=== PATIENT | male | born 1955 | race Caucasian/White ===

== ENCOUNTER 2024-08-12 10:39 | Emergency (ER) | payer MEDICARE ==
[~2024-08-12] VITALS: Ht 167.6 cm; Wt 102.2 kg
[~2024-08-12 10:39] MED LIST: ACET-683 PO; ADVA115A INH; ALBU8.5H PO; ALLO100T PO; AMLO1TAB24 PO; ATOR40TA75 PO; CALC1CAP PO; CALC667T2 PO; CARV3.12 PO; CARV6.25 PO; ECOT81TA5 PO; FINA5TAB2 PO; FLUT1BLS4; GABA-1171 PO; GABA-1172 PO; KETO120S5 TOP; KETO2CR TOP; LEVE250T5 PO; MAGN400C PO; NEUR100C PO; NORV5TAB PO; OXYC1TAB23 PO; PERCOCET PO; SEVE800T3 PO; TAMS-18 PO; TAMS1CAP17 PO; TIZA10TA PO; TIZA2CAP PO; TIZA2TA PO; VITA500038 PO
[2024-08-12 12:01] LABS: PLATELET COUNT, AUTOMATED 194 10^3/uL (150-450)
[2024-08-12 12:35] LABS: ALT/SGPT 12 U/L (7.0-40); AST/SGOT 12 U/L (<34); CALCIUM LEVEL 9.1 MG/DL (8.3-10.6); CARBON DIOXIDE LEVEL 21 MMOL/L (20-31); CHLORIDE LEVEL 101 MMOL/L (98-107); CREATININE FOR GFR 9.75 MG/DL (0.70-1.30); GLOMERULAR FILTRATION RATE 5.3 (>42); POTASSIUM SERUM 4.7 MMOL/L (3.5-5.1); SODIUM LEVEL 141 MMOL/L (136-145)
[2024-08-12 13:00] VITALS: BP 149/68; O2SAT 96
[2024-08-12 13:15] VITALS: TEMP 96.5
[2024-08-12 13:21] LABS: CK-MB VALUE MASS 3.3 NG/ML (<3.6)
[2024-08-12 13:22] LABS: CPK CREATINE PHOSPHOKINASE 136 U/L (46-171); MB/CK RELATIVE INDEX 2.42 (< OR =4)
[2024-08-12 13:37] LABS: BASO # 0.1 10^3/uL (0.0-0.2); BASO % 1.2 % (0.0-1.0); EOS # 0.5 10^3/uL (0.0-0.5); EOS % 4.5 % (0.0-3.0); LYMPH # 1.3 10^3/uL (1.5-5.0); LYMPH % 11.2 % (24.0-44.0); MONO # 0.9 10^3/uL (0.0-0.8); MONO % 7.8 % (2.0-8.0); NEUTROPHILS # 9.0 10^3/uL (1.5-8.5); NEUTROPHILS % 75.0 % (36.0-66.0)
== END 2024-08-12 13:20 | disposition home or self-care (01) ==
LOC: M ED 10:39
DX: N17.9 Acute kidney failure, unspecified (principal); J44.9 Chronic obstructive pulmonary disease, unspecified; G40.909 Epilepsy, unspecified, not intractable, without status epilepticus; Z79.52 Long term (current) use of systemic steroids; Z79.82 Long term (current) use of aspirin; Z79.02 Long term (current) use of antithrombotics/antiplatelets; Z79.899 Other long term (current) drug therapy

== ENCOUNTER 2024-08-16 15:21 | Day surgery (SDC) | payer MEDICARE ==
[~2024-08-16] VITALS: Ht 167.6 cm; Wt 97.4 kg
[2024-08-16] MEDS ORDERED: DESFLURANE 240 ML INHALANT As Ordered ONE (16:20)
[2024-08-16] MEDS ORDERED: SUGAMMADEX SODIUM 500 MG/5 ML VIAL As Ordered ONE (16:20)
[2024-08-16] MEDS ORDERED: MIDAZOLAM INJ 2 MG/2 ML VIAL As Ordered ONE (16:20)
[2024-08-16] MEDS ORDERED: ONDANSETRON 4MG 2ML VIAL As Ordered ONE (16:20)
[2024-08-16] MEDS ORDERED: dexAMETHasone 4 MG/ML 1 ML VIAL As Ordered ONE (16:20)
[2024-08-16] MEDS ORDERED: ROCURONIUM BROMIDE 50MG/5ML VIAL As Ordered ONE (16:20)
[2024-08-16] MEDS ORDERED: LIDOCAINE 2% 100 MG/5 ML SDV (FOR ANES.) As Ordered ONE (16:22)
[2024-08-16] MEDS: ceFAZolin SOD 2 GM IV ONCE IV ONE (17:15)
[2024-08-16] MEDS ORDERED: ACETAMINOPHEN 1000MG/100ML IV BAG As Ordered ONE (17:37)
[2024-08-16] MEDS: HEPARIN SOD 5000 UNITS/ML 1 ML VIAL/SYRINGE As Ordered ONE (17:42)
[2024-08-16] MEDS ORDERED: HYDROMORPHONE HCL 0.5 MG/0.5 ML SYRINGE IV PRN (17:45)
[2024-08-16 18:40] VITALS: BP 133/77; TEMP 98.6; O2SAT 94
[2024-08-17] MEDS ORDERED: UNRESOLVED CLARIFICATION ENTRY XX SCH (00:01)
== END 2024-08-16 19:05 | disposition home or self-care (01) ==
LOC: M SDC 15:21
PROVIDERS: ATTEND Surgery
DX: N18.6 End stage renal disease (principal); I12.0 Hypertensive chronic kidney disease with stage 5 chronic kidney disease or end stage renal disease; I25.10 Atherosclerotic heart disease of native coronary artery without angina pectoris; Z98.61 Coronary angioplasty status; M10.9 Gout, unspecified; I25.2 Old myocardial infarction; E78.5 Hyperlipidemia, unspecified; J44.9 Chronic obstructive pulmonary disease, unspecified; D64.9 Anemia, unspecified; G40.909 Epilepsy, unspecified, not intractable, without status epilepticus; G62.9 Polyneuropathy, unspecified; N40.0 Benign prostatic hyperplasia without lower urinary tract symptoms; Z79.51 Long term (current) use of inhaled steroids; Z79.899 Other long term (current) drug therapy; Z79.82 Long term (current) use of aspirin
CPT/HCPCS: 36415; 49324; 84132; J0131; J0665; J0690; J1100; J2250; J2405; J3010

== ENCOUNTER 2024-09-13 13:17 | Inpatient (IN) | payer OTHER, MEDICARE ==
[~2024-09-13] VITALS: Ht 167.6 cm; Wt 93.4 kg
[2024-09-13] MEDS: ACETAMINOPHEN 500 MG TAB PO ONE (15:29)
[2024-09-13] MEDS: METHOCARBAMOL 1,000 MG/10 ML VIAL IV ONE (18:44)
[2024-09-13] MEDS: MORPHINE 2 MG/ML 1 ML VIAL IV ONE (18:44)
[2024-09-13 18:51] LABS: BASO # 0.1 10^3/uL (0.0-0.2); BASO % 0.9 % (0.0-1.0); EOS # 0.8 10^3/uL (0.0-0.5); EOS % 7.6 % (0.0-3.0); LYMPH # 1.7 10^3/uL (1.5-5.0); LYMPH % 17.4 % (24.0-44.0); MONO # 0.9 10^3/uL (0.0-0.8); MONO % 9.0 % (2.0-8.0); NEUTROPHILS # 6.5 10^3/uL (1.5-8.5); NEUTROPHILS % 64.8 % (36.0-66.0); PLATELET COUNT, AUTOMATED 206 10^3/uL (150-450)
[2024-09-13 19:29] LABS: CALCIUM LEVEL 8.8 MG/DL (8.3-10.6); CARBON DIOXIDE LEVEL 21.0 MMOL/L (20-31); CHLORIDE LEVEL 106.0 MMOL/L (98-107); CREATININE FOR GFR 9.7 MG/DL (0.70-1.30); GLOMERULAR FILTRATION RATE 5.3 (>42); POTASSIUM SERUM 5.5 MMOL/L (3.5-5.1); SODIUM LEVEL 143.0 MMOL/L (136-145)
[2024-09-13] MEDS: PATIROMER SORBITEX CALCIUM 8.4GM POWDER PACKET PO ONE (20:30)
[2024-09-13] MEDS: NS (Normal Saline) 0.9% 1,000 ML IV ONE (20:30)
[2024-09-13] MEDS: HYDROMORPHONE HCL 0.5 MG/0.5 ML SYRINGE IV PRN (20:32)
[2024-09-13] MEDS: GABAPENTIN 300 MG CAP PO ONE (23:37)
[2024-09-14] MEDS ORDERED: MOM 30 ML SUSPENSION UDC PO PRN (01:05)
[2024-09-14 01:40] VITALS: BP 112/63; TEMP 97.5; O2SAT 98
[2024-09-14] MEDS ORDERED: GABA-1171 PO (03:14)
[2024-09-14] MEDS ORDERED: HOME MED LIST COMPLETE! XX SCH (03:15)
[2024-09-14 05:05] VITALS: BP 144/79; TEMP 97.5; O2SAT 97
[2024-09-14] MEDS ORDERED: SODIUM CHLORIDE 0.9% 1000 ML IV PRN (06:25)
[2024-09-14] MEDS ORDERED: HEPARIN 1,000 UNITS/ML 10 ML VIAL (FOR RADIOLOGY & DIALYSIS ONLY) IV PRN (06:25)
[2024-09-14] MEDS ORDERED: ALBUTEROL 90 MCG/ACT 8 GM HFA INHALER INH PRN (06:50)
[2024-09-14] MEDS ORDERED: PERCOCET 5MG/325MG TAB PO PRN (06:50)
[2024-09-14] MEDS ORDERED: PILL CUTTER 1 EACH XX PRN (07:05)
[2024-09-14 07:31] LABS: PLATELET COUNT, AUTOMATED 206 10^3/uL (150-450)
[2024-09-14] MEDS: FINASTERIDE 5 MG TAB PO SCH (07:50)
[2024-09-14] MEDS: SEVELAMER *CARBONate* 800 MG TAB PO SCH (07:50)
[2024-09-14] MEDS: ASPIRIN 81 MG ENTERIC TABLET PO SCH (07:50)
[2024-09-14] MEDS: GABAPENTIN 100 MG CAP PO SCH ×2 (07:51→20:17)
[2024-09-14] MEDS: ACETAMINOPHEN 325 MG TAB PO PRN (07:51)
[2024-09-14] MEDS: ATORVASTATIN 20 MG TAB PO SCH (07:52)
[2024-09-14] MEDS: MAGNESIUM OXIDE 400 MG TAB PO SCH (07:52)
[2024-09-14] MEDS: TAMSULOSIN 0.4 MG CAP PO SCH (07:52)
[2024-09-14 08:02] LABS: ALT/SGPT 13.0 U/L (7.0-40); AST/SGOT 13.0 U/L (<34); CALCIUM LEVEL 9.1 MG/DL (8.3-10.6); CARBON DIOXIDE LEVEL 19.0 MMOL/L (20-31); CHLORIDE LEVEL 106.0 MMOL/L (98-107); CREATININE FOR GFR 9.92 MG/DL (0.70-1.30); GLOMERULAR FILTRATION RATE 5.2 (>42); POTASSIUM SERUM 5.8 MMOL/L (3.5-5.1); SODIUM LEVEL 142.0 MMOL/L (136-145)
[2024-09-14] MEDS: DOCUSATE SODIUM 100 MG CAPSULE PO SCH (09:00)
[2024-09-14] MEDS: HEPARIN SOD 5000 UNITS/ML 1 ML VIAL/SYRINGE SC SCH (09:00)
[2024-09-14] MEDS: PERCOCET 5MG/325MG TAB PO PRN (09:22)
[2024-09-14] MEDS: HEPARIN 1,000 UNITS/ML 10 ML VIAL (FOR RADIOLOGY & DIALYSIS ONLY) XX SCH (10:42)
[2024-09-14 13:00] VITALS: BP 139/92; TEMP 97
[2024-09-14] MEDS: LIDOCAINE 5% PATCH TD SCH (15:53)
[2024-09-14 18:20] VITALS: BP 151/92
[2024-09-14] MEDS: ONDANSETRON 4MG 2ML VIAL IV PRN (18:37)
[2024-09-14 19:25] VITALS: BP 146/88; TEMP 98.2; O2SAT 96
[2024-09-15 05:01] VITALS: BP 135/71; TEMP 97.7; O2SAT 97
[2024-09-15 06:50] LABS: BASO # 0.1 10^3/uL (0.0-0.2); BASO % 1.1 % (0.0-1.0); EOS # 0.3 10^3/uL (0.0-0.5); EOS % 3.8 % (0.0-3.0); LYMPH # 1.6 10^3/uL (1.5-5.0); LYMPH % 21.2 % (24.0-44.0); MONO # 1.1 10^3/uL (0.0-0.8); MONO % 15.3 % (2.0-8.0); NEUTROPHILS # 4.3 10^3/uL (1.5-8.5); NEUTROPHILS % 58.3 % (36.0-66.0); PLATELET COUNT, AUTOMATED 165 10^3/uL (150-450)
[2024-09-15 07:25] LABS: CALCIUM LEVEL 9.1 MG/DL (8.3-10.6); CARBON DIOXIDE LEVEL 27.0 MMOL/L (20-31); CHLORIDE LEVEL 105.0 MMOL/L (98-107); CREATININE FOR GFR 7.1 MG/DL (0.70-1.30); GLOMERULAR FILTRATION RATE 7.7 (>42); MAGNESIUM LEVEL 2.4 MG/DL (1.8-2.4); POTASSIUM SERUM 4.1 MMOL/L (3.5-5.1); SODIUM LEVEL 144.0 MMOL/L (136-145)
[2024-09-15 12:00] VITALS: BP 128/79; TEMP 97.7
[2024-09-15] MEDS: PERCOCET 5MG/325MG TAB PO PRN (18:45)
[2024-09-15 19:55] VITALS: BP 128/76; TEMP 98.1; O2SAT 96
[2024-09-16 04:32] VITALS: BP 133/73; TEMP 97.7; O2SAT 95
[2024-09-16] MEDS: PERCOCET 5MG/325MG TAB PO PRN (04:45)
[2024-09-16] MEDS ORDERED: HEPARIN 1,000 UNITS/ML 10 ML VIAL (FOR RADIOLOGY & DIALYSIS ONLY) IV PRN (06:00)
[2024-09-16] MEDS ORDERED: SODIUM CHLORIDE 0.9% 1000 ML IV PRN (06:00)
[2024-09-16 06:39] LABS: BASO # 0.1 10^3/uL (0.0-0.2); BASO % 1.1 % (0.0-1.0); EOS # 0.5 10^3/uL (0.0-0.5); EOS % 5.5 % (0.0-3.0); LYMPH # 1.7 10^3/uL (1.5-5.0); LYMPH % 19.1 % (24.0-44.0); MONO # 1.2 10^3/uL (0.0-0.8); MONO % 13.2 % (2.0-8.0); NEUTROPHILS # 5.3 10^3/uL (1.5-8.5); NEUTROPHILS % 60.6 % (36.0-66.0); PLATELET COUNT, AUTOMATED 177 10^3/uL (150-450)
[2024-09-16 08:03] LABS: CALCIUM LEVEL 9.3 MG/DL (8.3-10.6); CARBON DIOXIDE LEVEL 25.0 MMOL/L (20-31); CHLORIDE LEVEL 106.0 MMOL/L (98-107); CREATININE FOR GFR 8.53 MG/DL (0.70-1.30); GLOMERULAR FILTRATION RATE 6.2 (>42); POTASSIUM SERUM 4.7 MMOL/L (3.5-5.1); SODIUM LEVEL 145.0 MMOL/L (136-145)
[2024-09-16] MEDS: HEPARIN 1,000 UNITS/ML 10 ML VIAL (FOR RADIOLOGY & DIALYSIS ONLY) XX SCH (09:13)
[2024-09-16 13:26] VITALS: BP 131/74; TEMP 97.9; O2SAT 99
[2024-09-16 19:40] VITALS: BP 126/93; TEMP 97.9; O2SAT 97
[2024-09-17 05:35] VITALS: TEMP 97.5
[2024-09-17 08:50] LABS: CALCIUM LEVEL 9.6 MG/DL (8.3-10.6); CARBON DIOXIDE LEVEL 25.0 MMOL/L (20-31); CHLORIDE LEVEL 104.0 MMOL/L (98-107); CREATININE FOR GFR 6.93 MG/DL (0.70-1.30); GLOMERULAR FILTRATION RATE 7.9 (>42); POTASSIUM SERUM 4.5 MMOL/L (3.5-5.1); SODIUM LEVEL 141.0 MMOL/L (136-145)
[2024-09-17 09:54] VITALS: BP 127/77
[2024-09-17 14:00] VITALS: BP 136/70; TEMP 97.5; O2SAT 98
[2024-09-17] MEDS ORDERED: LIDO1PAD TOP (16:04)
[2024-09-17] MEDS ORDERED: OXYC1TAB23 PO (16:04)
== END 2024-09-17 16:35 | disposition home or self-care (01) | DRG 347 ==
LOC: M ED 13:17 → EDBD 13:17 → M ED INP 13:18 → M MS5PR 09-14 01:40 → OBSVTOIN 09-14 15:41
PROVIDERS: ADMIT Student in an Organized Health Care Education/Training Program; ATTEND Internal Medicine
PROC: 5A1D70Z Performance of Urinary Filtration, Intermittent, Less than 6 Hours Per Day (ICD-10-PCS; principal; 2024-09-14)
DX: M48.061 Spinal stenosis, lumbar region without neurogenic claudication (principal); I95.9 Hypotension, unspecified; N18.6 End stage renal disease; E83.39 Other disorders of phosphorus metabolism; I12.0 Hypertensive chronic kidney disease with stage 5 chronic kidney disease or end stage renal disease; J44.9 Chronic obstructive pulmonary disease, unspecified; E87.5 Hyperkalemia; D63.1 Anemia in chronic kidney disease; G40.909 Epilepsy, unspecified, not intractable, without status epilepticus; E78.5 Hyperlipidemia, unspecified; G89.29 Other chronic pain; Z96.653 Presence of artificial knee joint, bilateral; N40.0 Benign prostatic hyperplasia without lower urinary tract symptoms; M10.9 Gout, unspecified; Z79.82 Long term (current) use of aspirin; Z79.899 Other long term (current) drug therapy; Z90.49 Acquired absence of other specified parts of digestive tract; Z99.2 Dependence on renal dialysis; K59.00 Constipation, unspecified

== ENCOUNTER → 2024-12-10 | Outpatient (CLI) | payer MEDICARE, OTHER ==
[~2024-12-10] VITALS: Ht 167.6 cm; Wt 98.6 kg
[~2024-12-10] MED LIST changes: +CEPH25SS PO; +LIDO1PAD TOP; +MIDAZOLAM INJ 2 MG/2 ML VIAL IV PRN
[2024-12-10 09:45] VITALS: TEMP 98.1
[2024-12-10] MEDS: ceFAZolin SODIUM 2 GM in DEXTROSE 5% (D5W) ADV/MINI-BAG 50 ML IV ONE (09:55)
[2024-12-10] MEDS: NS (Normal Saline) 0.9% 1,000 ML IV SCH (09:55)
[2024-12-10 11:15] VITALS: BP 144/81; O2SAT 97
[2024-12-10] MEDS: LIDOCAINE 1% MDV 20 ML VIAL SC SCH (16:42)
== END ==
LOC: M IRPRO 09:18
PROVIDERS: ATTEND Internal Medicine Nephrology
DX: N18.6 End stage renal disease (principal)